=== PATIENT | male | born 1960 | race Caucasian/White ===

== ENCOUNTER 2017-01-04 20:39 | Observation (INO) | payer SELFPAY ==
[~2017-01-04] VITALS: Ht 175.3 cm; Wt 75.0 kg
[2017-01-04] MEDS ORDERED: IOHEXOL 350 MG/ML 10 ML VIAL (for RAD DIAG) IVCONTRAST ONE (20:40)
[2017-01-04 20:43] VITALS: BP 168/89; PULSE 90; RESP 19; O2SAT 100
[2017-01-04 20:51] VITALS: BP 168/80; PULSE 93; RESP 16; O2SAT 100
[2017-01-04 20:52] VITALS: BP_SYST 168; BP_SYST 178; BP_DIAS 80; BP_DIAS 84
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
[2017-01-04 20:55] VITALS: O2SAT 99
[2017-01-04] MEDS ORDERED: SODIUM CHLORIDE 0.9% FLUSH 10 ML FLUSH IVF PRN (21:00)
--- NOTE | 2017-01-04 21:33 | RADRPT ---
EXAM DATE/TIME: 01/04/2017 21:24 [facility] COMPARISON: No previous studies available for comparison. INDICATIONS : Severe shortness of breath. MEDICAL HISTORY : Chronic obstructive pulmonary disease. SURGICAL HISTORY : None. ENCOUNTER: Initial ACUITY: 1 day PAIN SCORE: 0/10 LOCATION: Bilateral chest FINDINGS: A single view of the chest demonstrates the lungs to be symmetrically aerated without evidence of mas s, infiltrate or effusion. The cardiomediastinal contours are unremarkable. Osseous structures are intact. CONCLUSION: Normal examination. Jaswinder Bustos MD on January 04, 2017 at 21:31 Board Certified Radiologist. This report was verified electronically.
[2017-01-04] MEDS ORDERED: ONDANSETRON HCL 4 MG/2 ML VIAL IV PUSH ONE (21:45)
[2017-01-04] MEDS ORDERED: NITROGLYCERIN 0.4 MG SL 25 TABS/BTL SL PRN (21:45)
[2017-01-04] MEDS ORDERED: ASPIRIN 81 MG CHEW TAB CHEW ONE (21:45)
[2017-01-04] MEDS ORDERED: PANTOPRAZOLE SODIUM 40 MG VIAL IV PUSH ONE (21:45)
[2017-01-04] MEDS ORDERED: NITROGLYCERIN 2% OINT 1 GM PACKET TOPICAL ONE (21:45)
[2017-01-04 22:09] LABS: AUTOMATED NEUTROPHIL # 5.6 TH/MM3 (1.8-7.7); BASOPHIL % 0.3 % (0.0-2.0); EOSINOPHIL # 0.1 TH/MM3 (0-0.4); HEMATOCRIT 41.5 % (39.0-51.0); HEMO FLAGS DIFF FINAL; LYMPHOCYTE # 3.8 TH/MM3 (1.0-4.8); MEAN CORPUSCULAR HEMOGLOBIN 30.4 PG (27.0-34.0); MEAN CORPUSCULAR HGB CONC 34.1 % (32.0-36.0); NEUT % 53.7 % (16.0-70.0); PLATELET COUNT 239 TH/MM3 (150-450); RED BLOOD COUNT 4.67 MIL/MM3 (4.50-5.90); RED CELL DISTRIBUTION WIDTH 13.6 % (11.6-17.2); WHITE BLOOD COUNT 10.5 TH/MM3 (4.0-11.0)
[2017-01-04 22:35] LABS: ALKALINE PHOSPHATASE 70 U/L (45-117); ALT (GPT) 22 U/L (12-78); ANION GAP 13 MEQ/L (5-15); AST (GOT) 25 U/L (15-37); BICARBONATE 20.4 MEQ/L (21.0-32.0); BLOOD UREA NITROGEN 20 MG/DL (7-18); CHLORIDE 106 MEQ/L (98-107); GLOMERULAR FILTRATION RATE 53 ML/MIN (>89); SODIUM (NA) 139 MEQ/L (136-145); TOTAL BILIRUBIN ADULT 0.4 MG/DL (0.2-1.0)
[2017-01-04 22:46] LABS: ALCOHOL LESS THAN 3 MG/DL (0-5); APTT (PATIENT) 23.1 SEC (24.3-30.1); CREATINE KINASE 99 U/L (39-308); INTERNATIONAL NORMALIZED RATIO 0.9 RATIO; POTASSIUM 3.4 MEQ/L (3.5-5.1); PROTHROMBIN TIME - PATIENT 10.1 SEC (9.8-11.6)
[2017-01-04] MEDS ORDERED: SODIUM CHLOR 0.9% 1000 ML INJ 1,000 ML IV ONE (23:00)
--- NOTE | 2017-01-04 23:44 | RADRPT ---
EXAM DATE/TIME: 01/04/2017 23:02 [facility] COMPARISON: No previous studies available for comparison. INDICATIONS : Chest pain with shortness of breath. IV CONTRAST: 95 cc Omnipaque 350 (iohexol) IV RADIATION DOSE: 6.73 CTDIvol (mGy) MEDICAL HISTORY : Chronic obstructive pulmonary disease. SURGICAL HISTORY : Craniotomy. ENCOUNTER: Initial ACUITY: 1 day PAIN SCALE: 10/10 LOCATION: Bilateral chest TECHNIQUE: Volumetric scanning was performed using a multi-row detector CT scanner. The data was post processed with a variety of visualization algorithms including full volume maximum intensity projection, multi -planar sliding thin slab reformation, curved planar reformation, and surface rendering techniques. Using automated exposure control and adjustment of the mA and/or kV according to patient size, radiat ion dose was kept as low as reasonably achievable to obtain optimal diagnostic quality images. DICOM format image data is available electronically for review and comparison. FINDINGS: The thoracic aorta is normal in caliber and appearance throughout with no evidence of stenosis, aneur ysm or dissection. Variant arch anatomy is identified with left vertebral artery arising directly fro m the aortic arch. The arch branch vessels are all widely patent. The abdominal aorta is widely paten t with patchy intimal calcifications noted. Aortic visceral vessels are patent and unremarkable with incidental note of accessory renal arteries bilaterally. The iliacs are unremarkable with widely byrd nt hypogastric. Common femoral arteries and visualized proximal thigh vessels are intact. The pulmonary arteries are well-opacified and there is no evidence of embolism. There is minimal reticular parenchymal opacity in the lateral left upper lobe. There are coronary artery calcifications present. No evidence of mediastinal mass. In the abdomen, the solid organs are benign in appearance. Bowel structures are nondilated and focall y unremarkable. Pelvic contents are benign. CONCLUSION: Minimal reticular parenchymal density in the lateral left upper lobe of the lung. No significant vascular abnormalities Rogers Umana MD on January 04, 2017 at 23:32 Board Certified Radiologist. This report was verified electronically.
[2017-01-05] VITALS (7 sets, daily range): BP systolic 98–119; BP diastolic 63–73; PULSE 53–75; RESP 16–18; TEMP 96.1–98.1; O2SAT 95–100
[2017-01-05] MEDS ORDERED: ACETAMINOPHEN 500 MG CPLT PO PRN
[2017-01-05] MEDS ORDERED: SODIUM CHLORIDE 0.9% FLUSH 10 ML FLUSH IV FLUSH PRN
[2017-01-05] MEDS ORDERED: ONDANSETRON HCL 4 MG/2 ML VIAL IV PUSH PRN
[2017-01-05 01:28] LABS: CREATINE KINASE 84 U/L (39-308)
[2017-01-05 04:14] LABS: CREATINE KINASE 61 U/L (39-308)
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
[2017-01-05] MEDS ORDERED: FAMOTIDINE 20 MG TAB PO SCH (09:00)
[2017-01-05] MEDS ORDERED: ASPIRIN 325 MG TAB PO SCH (09:00)
[2017-01-05] MEDS ORDERED: SODIUM CHLORIDE 0.9% FLUSH 10 ML FLUSH IV FLUSH SCH (09:00)
--- NOTE | 2017-01-05 11:25 | RADRPT ---
EXAM DATE/TIME: 01/05/2017 08:45 [place] COMPARISON: No previous studies available for comparison. INDICATIONS : Susbternal chest pain with dyspnea. Angina Coronary artery disease. DOSE: 25.6 mCi Tc99m Myoview at stress 8.6 mCi Tc99m Myoview at rest REST HEART RATE: 71 BPM TARGET HEART RATE: 139 BPM MAX HEART RATE: 136 BPM REST BLOOD PRESSURE: 124/76 mmHg MAX BLOOD PRESSURE: 148/78 mmHg EJECTION FRACTION: 63% MEDICAL HISTORY : Chronic obstructive pulmonary disease. SURGICAL HISTORY : Left leg and brain surgery. ENCOUNTER: Initial ACUITY: 1 day PAIN SCALE: 5/10 LOCATION: Substernal chest TECHNIQUE: The patient underwent upright treadmill exercise in the chest pain center. Continuous ECG tracing wa s monitored during stress. Gated SPECT imaging was performed after stress, and conventional SPECT im aging was performed at rest. The examination was performed on a SPECT/CT scanner, both attenuation-c orrected and non-corrected datasets were reviewed. FINDINGS: The best perfused myocardium is the anterior lateral wall followed by the inferolateral. There is no redistribution suggest stress-induced ischemia. There are no fixed defects evident. There is normal wall motion. CONCLUSION: Negative for stress-induced ischemia. RISK CATEGORY: Low (<1% Annual Mortality Rate) Franklyn Woodall MD FACR on January 05, 2017 at 11:22 Board Certified Radiologist. This report was verified electronically.
[2017-01-05] MEDS ORDERED: OMEP20TA PO (11:59)
--- NOTE | 2017-01-05 12:01 | HHI.DCPOC ---
Discharge Care Plan Diagnosis: (1) Atypical chest pain (2) GERD (gastroesophageal reflux disease) Goals to Promote Your Health * To prevent worsening of your condition and complications * To maintain your health at the optimal level Directions to Meet Your Goals Take your medications as prescribed Follow your dietary instruction Follow activity as directed Keep your appointments as scheduled Take your immunizations and boosters as scheduled If your symptoms worsen call your PCP, if no PCP go to Urgent Care Center or Emergency Room Smoking is Dangerous to Your Health. Avoid second hand smoke Call the 24-hour hour crisis hotline for domestic abuse at Layne Spears Jan 05, 2017 12:01
--- NOTE | 2017-01-06 07:20 | TR ---
Date Performed: 01/05/2017 Time Performed: 09:46:33 DOCTOR: Chitra Kennedy DRUG LIST: CLINICAL HISTORY: CP R/O HI REASON FOR TEST: REASON FOR ENDING: OBSERVATION: CONCLUSION: Valente protocol competed. Stopped sec to leg fatigue. Maximum YH=881 Target HR Achie bernice=83.0 %Maximum NF=305/78 Total Exercise Time=8:07. No reprod chest pain. No ectopy. St depression diffuse horizontal sloping segment, t wave inversions at peak inferiorly. Good exercise tolerance. Re covery quick and unremarkable. Nuclear images pending. COMMENTS:
--- NOTE | 2017-01-06 07:21 | EKG ---
Date Performed: 01/05/2017 Time Performed: 00:50:56 PTAGE: 56 years EKG: Sinus rhythm NONSPECIFIC T-WAVE ABNORMALITY BORDERLINE ECG Since PREVIOUS TRACING , no significant change noted PREVIOUS TRACIN01/04/2017 20.49 DOCTOR: Chitra Kennedy Interpretating Date/Time 01/06/2017 07:20:20
--- NOTE | 2017-01-06 07:21 | EKG ---
Date Performed: 01/05/2017 Time Performed: 03:34:29 PTAGE: 56 years EKG: SINUS BRADYCARDIA BORDERLINE ECG Since PREVIOUS TRACING , no significant change noted PREVIOUS TRACIN01/05/2017 00.50 DOCTOR: Chitra Kennedy Interpretating Date/Time 01/06/2017 07:19:44
--- NOTE | 2017-01-06 07:22 | EKG ---
Date Performed: 01/04/2017 Time Performed: 20:49:55 PTAGE: 56 years EKG: Sinus rhythm WITH SHORT MS INTERVAL NONSPECIFIC ST & T-WAVE ABNORMALITY BORDERLINE ECG NO PREVIOUS TRACING DOCTOR: Chitra Kennedy Interpretating Date/Time 01/06/2017 07:20:52
== END 2017-01-05 12:21 | disposition home or self-care (01) ==
LOC: NEPC 20:39 → NEDA 23:39 → NEPGCP 01-05 00:32
DX: R07.89 Other chest pain (principal); F12.90 Cannabis use, unspecified, uncomplicated; J44.9 Chronic obstructive pulmonary disease, unspecified; K21.9 Gastro-esophageal reflux disease without esophagitis; R94.31 Abnormal electrocardiogram [ECG] [EKG]; F17.200 Nicotine dependence, unspecified, uncomplicated; Z79.899 Other long term (current) drug therapy
CPT/HCPCS: 71010; 71275; 74174; 78452; 80053; 80307; 82550; 83690; 83735; 83880; 84484; 85025; 85379; 85610; 85730; 93005; 93017; 99285; A9502; G0378; J7030; Q9967